=== PATIENT | male | born 1980 | race African-American/Black ===

== ENCOUNTER 2017-11-20 23:41 | Emergency (ER) | payer OTHER ==
[2017-11-21 00:13] VITALS: BP 145/96; PULSE 73; BMI 21.4
[2017-11-21] MEDS ORDERED: MECLIZINE HCL 25 MG TABLET (FP) PO STA (00:18)
[2017-11-21] MEDS ORDERED: ALBUTEROL SO4 2.5/IPRATROPIUM 0.5 INH SOL 3 ML VIAL.NEB. NEB STA (00:18)
[2017-11-21] MEDS ORDERED: MECLIZINE HCL 25 MG TABLET (FP) ONE (00:19)
--- NOTE | 2017-11-21 00:19 | PDOC ---
History of Present Illness - General History Source: Patient Exam Limitations: No Limitations - History of Present Illness Initial Comments: 11/21/17 00:42 The patient is a 37 year old male with a significant PMH of seasonal allergies who presents to the emergency department with beginning approximately shortness of breath and chest congestion beginning approximately 3 days ago. The patient also notes associated dry cough. He denies taking any medications for allergies or for his shortness of breath. The patient denies sick contacts or recent travel. He denies chest pain, headache, and dizziness. Denies fever, chills, nausea, vomit, diarrhea and constipation. Denies dysuria, frequency, urgency and hematuria. Allergies: Minerals, Vitamin B complex, C, and E. Past surgical history: None reported. Social history: No reported cigarette, alcohol, or drug use. PCP: None reported. <Lino Mclaughlin - Last Filed: 11/21/17 00:42> - General History Source: Patient <Vinny Miller - Last Filed: 11/21/17 19:44> - General Chief Complaint: Shortness of Breath Stated Complaint: SHORTNESS OF BREATH Time Seen by Provider: 11/21/17 00:15 Past History <Lino Mclaughlin - Last Filed: 11/21/17 00:42> - Past Medical History COPD: No - Suicide/Smoking/Psychosocial Hx Smoking History: Never smoked <Vinny Miller - Last Filed: 11/21/17 19:44> - Past Medical History Allergies/Adverse Reactions: Allergies Allergy/AdvReac Type Severity Reaction Status Date / Time minerals [From Enviro Stress] Allergy Verified 11/21/17 00:12 vitamin B complex and C Allergy Verified 11/21/17 00:12 [From Enviro Stress] vitamin E (d-alpha Allergy Verified 11/21/17 00:12 tocopherol) [From Enviro Stress] Home Medications: Ambulatory Orders Albuterol Sulfate Inhaler - [Ventolin HFA Inhaler -] 2 inh IH Q6H #1 inh Diphenhydramine HCl [Benadryl Capsules -] 25 mg PO TID #20 capsule 11/21/17 Loratadine [Claritin] 10 mg PO DAILY #30 tablet 11/21/17 Review of Systems - Review of Systems Able to Perform ROS?: Yes Comments:: 11/21/17 00:42 CONSTITUTIONAL: Absent: fever, chills, diaphoresis, generalized weakness, malaise, loss of appetite HEENT: Absent: rhinorrhea, nasal congestion, throat pain, throat swelling, difficulty swallowing, mouth swelling, ear pain, eye pain, visual Changes CARDIOVASCULAR: Absent: chest pain, syncope, palpitations, irregular heart rate, lightheadedness , peripheral edema RESPIRATORY: (+) Shortness of breath. (+) Dry cough. (+) Chest congestion. Absent: dyspnea with exertion, orthopnea, wheezing, stridor, hemoptysis GASTROINTESTINAL: Absent: abdominal pain, abdominal distension, nausea, vomiting, diarrhea, constipation, melena, hematochezia GENITOURINARY: Absent: dysuria, frequency, urgency, hesitancy, hematuria, flank pain, genital pain MUSCULOSKELETAL: Absent: myalgia, arthralgia, joint swelling SKIN: Absent: rash, itching, pallor HEMATOLOGIC/IMMUNOLOGIC: Absent: easy bleeding, easy bruising, lymphadenopathy, frequent infections ENDOCRINE: Absent: unexplained weight gain, unexplained weight loss, heat intolerance, cold intolerance NEUROLOGIC: Absent: headache, focal weakness or paresthesias, dizziness, unsteady gait, seizure, mental status changes, bladder or bowel incontinence PSYCHIATRIC: Absent: anxiety, depression, suicidal or homicidal ideation, hallucinations. <Lino Mclaughlin - Last Filed: 11/21/17 00:42> *Physical Exam - Vital Signs Last Vital Signs Temp Pulse Resp BP Pulse Ox 73 24 145/96 98 11/21/17 00:12 11/21/17 00:12 11/21/17 00:12 11/21/17 00:12 - Physical Exam Comments: 11/21/17 00:42 GENERAL: Well developed, well nourished. Awake and alert. No acute distress. HEENT: Normocephalic, atraumatic. PERRLA, EOMI. No conjunctival pallor. Sclera are non- icteric. Moist mucous membranes. Oropharynx is clear. NECK: Supple. Full ROM. No JVD. Carotid pulses 2+ and symmetric, without bruits. No thyromegaly. No lymphadenopathy. CARDIOVASCULAR: Regular rate and rhythm. No murmurs, rubs, or gallops. Distal pulses are 2+ and symmetric. PULMONARY: (+) Wheezing. No conversational dyspnea. No evidence of respiratory distress. No rales or rhonchi. ABDOMINAL: Soft. Non-tender. Non-distended. No rebound or guarding. No organomegaly. Normoactive bowel sounds. MUSCULOSKELETAL Normal range of motion at all joints. No bony deformities or tenderness. No CVA tenderness. EXTREMITIES: No cyanosis. No clubbing. No edema. No calf tenderness. SKIN: Warm and dry. Normal capillary refill. No rashes. No jaundice. NEUROLOGICAL: Alert, awake, appropriate. Cranial nerves 2-12 intact. No deficits to light touch and temperature in face, upper extremities and lower extremities. No motor deficits in the in face, upper extremities and lower extremities. Normoreflexic in the upper and lower extremities. Normal speech. Toes are downgoing bilaterally. Gait is normal without ataxia. PSYCHIATRIC: Cooperative. Good eye contact. Appropriate mood and affect. <Lino Mclaughlin - Last Filed: 11/21/17 00:42> - Vital Signs Last Vital Signs Temp Pulse Resp BP Pulse Ox 73 24 145/96 98 11/21/17 00:12 11/21/17 00:12 11/21/17 00:12 11/21/17 00:12 <Vinny Miller - Last Filed: 11/21/17 19:44> ED Treatment Course - Medications Given in the ED: ED Medications Discontinued Medications Generic Name Dose Route Start Last Admin Trade Name Freq PRN Reason Stop Dose Admin Albuterol/Ipratropium 1 amp 11/21/17 00:18 11/21/17 00:39 Duoneb - NEB 11/21/17 00:19 1 amp ONCE STA Administration Meclizine HCl 25 mg 11/21/17 00:18 11/21/17 00:24 Antivert - PO 11/21/17 00:19 25 mg ONCE STA Administration <Lino Mclaughlin - Last Filed: 11/21/17 00:42> Medical Decision Making - Medical Decision Making 11/21/17 19:42 Dr. Miller: The scribe's documentation has been prepared under my direction and personally reviewed by me in its entirery. I confirm that the note above accurately reflects all work, treatment, procedures, and medical decision making performed by me. Chest x-ray negative for infiltrate. feels better after treatment. Will discharge <Vinny Miller - Last Filed: 11/21/17 19:44> *DC/Admit/Observation/Transfer - Attestations Scribe Attestion: 11/21/17 00:42 Documentation prepared by Lino Mclaughlin, acting as medical office receptionist for Vinny Miller DO. <Lino Mclaughlin - Last Filed: 11/21/17 00:42> - Discharge Dispostion Decision to Admit order: No <Vinny Miller - Last Filed: 11/21/17 19:44> Diagnosis at time of Disposition: SOB (shortness of breath), Bronchospasm - Discharge Dispostion Disposition: HOME Condition at time of disposition: Improved - Prescriptions Prescriptions: Albuterol Sulfate Inhaler - [Ventolin HFA Inhaler -] 2 inh IH Q6H #1 inh Diphenhydramine HCl [Benadryl Capsules -] 25 mg PO TID #20 capsule Loratadine [Claritin] 10 mg PO DAILY #30 tablet - Referrals Referrals: Matthieu Temple MD, MD [Staff Physician] - - Patient Instructions Printed Discharge Instructions: DI for Asthma -- Adult, DI for Shortness of Breath Additional Instructions: Please follow up with your to be re-evaluated for the wheezing you have been experiencing. Return if any problems
== END 2017-11-21 01:45 | disposition home or self-care (01) ==
LOC: JER 23:41
PROC: 3E0F7GC Introduction of Other Therapeutic Substance into Respiratory Tract, Via Natural or Artificial Opening (ICD-10-PCS; principal; 2017-11-20)
DX: R06.02 Shortness of breath (principal); J98.01 Acute bronchospasm
CPT/HCPCS: 71046-TC-FY; 99281-25; J7620

== ENCOUNTER 2018-12-05 00:14 | Emergency (ER) | payer OTHER ==
[2018-12-05 00:48] VITALS: BP 141/90; PULSE 94; TEMP 97.6; BMI 21.4
[2018-12-05] MEDS ORDERED: ALBUTEROL SO4 2.5/IPRATROPIUM 0.5 INH SOL 3 ML VIAL.NEB. NEB ONE ×2 (02:19→02:34)
--- NOTE | 2018-12-05 02:21 | PDOC ---
History of Present Illness - General Chief Complaint: Shortness of Breath Stated Complaint: DIFFICULTY BREATHING Past History - Past Medical History Allergies/Adverse Reactions: Allergies Allergy/AdvReac Type Severity Reaction Status Date / Time minerals [From Enviro Stress] Allergy Verified 12/05/18 00:47 vitamin B complex and C Allergy Verified 12/05/18 00:47 [From Enviro Stress] vitamin E (d-alpha Allergy Verified 12/05/18 00:47 tocopherol) [From Enviro Stress] Home Medications: Ambulatory Orders Albuterol 0.083% Nebulizer Dinah [Ventolin 0.083% Nebulizer Soln -] 1 amp NEB Q4H PRN #1 amp 12/05/18 COPD: No - Suicide/Smoking/Psychosocial Hx Smoking History: Never smoked Have you smoked in the past 12 months: No Information on smoking cessation initiated: No Hx Alcohol Use: No Drug/Substance Use Hx: No Review of Systems - Review of Systems Able to Perform ROS?: Yes Comments:: GENERAL/CONSTITUTIONAL: No fever or chills. No weakness HEAD, EYES, EARS, NOSE AND THROAT: No change in vision. No ear pain or discharge. No sore throat CARDIOVASCULAR: +chest pain RESPIRATORY: Denies cough, hemoptysis GASTROINTESTINAL: No nausea, vomiting, diarrhea or constipation GENITOURINARY: No dysuria, frequency, or change in urination MUSCULOSKELETAL: No joint or muscle swelling or pain. No neck or back pain SKIN: No rash NEUROLOGIC: No headache, vertigo, loss of consciousness, or change in strength/ sensation ENDOCRINE: No increased thirst. No abnormal weight change HEMATOLOGIC/LYMPHATIC: No anemia, easy bleeding, or history of blood clots ALLERGIC/IMMUNOLOGIC: No hives or skin allergy 12/05/18 02:20 Is the patient limited Singaporean proficient: No *Physical Exam - Vital Signs Last Vital Signs Temp Pulse Resp BP Pulse Ox 97.6 F 94 H 18 141/90 97 12/05/18 00:47 12/05/18 00:47 12/05/18 00:47 12/05/18 00:47 12/05/18 00:47 - Physical Exam Comments: GENERAL: Awake, alert, and oriented to person/place/time, in no acute distress HEAD: No signs of trauma, normocephalic, atraumatic EYES: PERRLA, EOMI, sclera anicteric, conjunctiva clear ENT: Hearing grossly normal, nares patent, oropharynx clear without exudates. Moist mucosa LUNGS: No distress, speaks full sentences, mild wheeze appreciated at the left base HEART: Regular rate and rhythm, normal S1 and S2, no murmurs appreciated, peripheral pulses normal and equal bilaterally ABDOMEN: Soft, nontender, normoactive bowel sounds. No guarding, no rebound EXTREMITIES: Normal inspection, Normal range of motion, no edema. No clubbing or cyanosis NEUROLOGICAL: Cranial nerves II through XII grossly intact. Normal speech, normal gait, no focal sensorimotor deficits SKIN: Warm, Dry 12/05/18 02:21 ED Treatment Course - LABORATORY CBC & Chemistry Diagram: 12/05/18 02:30 12/05/18 02:30 - RADIOLOGY Radiology Studies Ordered: Category Date Time Status CHEST PA & LAT [RAD] Stat Radiology 12/05/18 02:19 Ordered Medical Decision Making - Medical Decision Making ED Course CMP, CBC CXR duo-neb x1 CXR w/o focal infiltrate, no PNX 12/05/18 03:09 Pt reports symptomatic resolution s/p neb and wheeze resolved on exam Pt feels at baseline and is breathing comfortably on room air without chest pain Will send Rx for albuterol inhaler for possible seasonal induced asthma Plan for D/C w/ PCP f/u Discharge instructions and return precautions given Pt in agreement and verbalized understanding Dispo: home *DC/Admit/Observation/Transfer Diagnosis at time of Disposition: SOB (shortness of breath) - Discharge Dispostion Disposition: HOME Condition at time of disposition: Improved Decision to Admit order: No - Prescriptions Prescriptions: Albuterol 0.083% Nebulizer Dinah [Ventolin 0.083% Nebulizer Soln -] 1 amp NEB Q4H PRN #1 amp PRN Reason: Wheezing - Referrals Referrals: Chandler Evans MD [Primary Care Provider] - [facility] [Provider Group] - Patient Instructions Printed Discharge Instructions: DI for Reactive Airway Disease-Adult Additional Instructions: You were seen in the Emergency Department for evaluation of shortness of breath. You labs were unremarkable and your x-ray was negative for pneumonia. A prescription was sent for an albuterol inhaler to the pharmacy that you specified. Take as directed. Follow up with your primary care provider. Review the handout provided at discharge. Return to the Emergency Department if you develop fevers/chills, chest pain, trouble breathing, worsening symptoms, or any new/concerning symptoms. - Post Discharge Activity Forms/Work/School Notes: Back to Work
--- NOTE | 2018-12-05 02:38 | PDOC ---
Attending Attestation - Resident Resident Name: Andrea Salas - ED Attending Attestation I have performed the following: I have examined & evaluated the patient, The case was reviewed & discussed with the resident, I agree w/resident's findings & plan, Exceptions are as noted
[2018-12-05 02:46] LABS: EOS % 15.6 % (0-4.5); HEMATOCRIT 45.1 % (35.4-49); HEMOGLOBIN 14.3 GM/dL (11.7-16.9); LYMPH % 44.9 % (8-40); MCH 26.8 pg (25.7-33.7); MCHC 31.8 g/dl (32.0-35.9); MEAN CELL VOLUME 84.2 fl (80-96); MEAN PLT VOLUME 8.1 fl (7.5-11.1); MONO % 11.7 % (3.8-10.2); NEUT % 25.8 % (42.8-82.8); PLATELET COUNT 184 K/MM3 (134-434); RBC 5.36 M/mm3 (4.00-5.60); RDW 14.7 % (11.9-15.9); WHITE BLOOD COUNT 3.8 K/mm3 (4.0-10.0)
[2018-12-05 03:11] LABS: BILIRUBIN,TOTAL 0.3 mg/dL (0.2-1); CALCIUM 8.9 mg/dL (8.5-10.1); CREATININE 1.2 mg/dL (0.55-1.3); POTASSIUM 4.4 mmol/L (3.5-5.1); TOT PROT 7.3 g/dl (6.4-8.2)
== END 2018-12-05 03:59 | disposition home or self-care (01) ==
LOC: JER 00:14
PROC: 3E0F7GC Introduction of Other Therapeutic Substance into Respiratory Tract, Via Natural or Artificial Opening (ICD-10-PCS; principal; 2018-12-05)
DX: R06.02 Shortness of breath (principal)
CPT/HCPCS: 36415; 71046-TC-FY; 80053; 85025; 99282-25